=== PATIENT | female | born 1960 | race Caucasian/White ===

== ENCOUNTER 2019-05-08 01:47 | Emergency (ER) | payer OTHER ==
[~2019-05-08] VITALS: Ht 175.3 cm; Wt 92.8 kg
[2019-05-08] MEDS ORDERED: ONDANSETRON 2MG/ML, 2ML ONE (02:20)
[2019-05-08] MEDS ORDERED: KETOROLAC 30 MG/1 ML ONE (02:20)
[2019-05-08 02:24] LABS: MEAN CORPUSCULAR HEMOGLOBIN 30.9 pg (27.0-34.8); MEAN CORPUSCULAR HGB CONC 32.5 g/dL (32.4-35.8); MEAN CORPUSCULAR VOLUME 94.9 fL (80-100); MEAN PLATELET VOLUME 8.3 fL (7.4-10.4); PLATELET COUNT 418 x10^3/uL (130-400); RED BLOOD COUNT 5.13 x10^6/uL (3.82-5.3); RED CELL DISTRIBUTION WIDTH 14.1 % (9.6-15.2)
[2019-05-08] MEDS ORDERED: KETOROLAC 30 MG/1 ML IVPush ONE (02:30)
[2019-05-08] MEDS ORDERED: ONDANSETRON 2MG/ML, 2ML IVPush ONE (02:30)
[2019-05-08] MEDS ORDERED: SODIUM CHLORIDE 0.9% 1,000ML IVBOLUS ONE ×2 (02:30→06:00)
[2019-05-08 02:35] LABS: RAPID INFLUENZA A Negative (Negative); RAPID INFLUENZA B Negative (Negative)
[2019-05-08 02:37] LABS: ALANINE AMINOTRANSFERASE 22 U/L (12-78); ALBUMIN 3.9 g/dL (3.4-5.0); ANION GAP 7 mmol/L (5-15); CHLORIDE 105 mmol/L (98-107)
[2019-05-08 02:41] LABS: ALKALINE PHOSPHATASE 72 U/L (45-117); BILIRUBIN,TOTAL 0.4 mg/dL (0.2-1.0); TOTAL PROTEIN 8.1 g/dL (6.4-8.2); TROPONIN I < 0.015 ng/mL (0.000-0.045)
[2019-05-08 02:47] LABS: BASOPHILS # (AUTO) 0.02 x10^3/uL (0-0.1); BASOPHILS % (AUTO) 0 % (0-1); EOSINOPHILS # (AUTO) 0.12 x10^3/uL (0-0.4); EOSINOPHILS % (AUTO) 1 % (1-7); LYMPHOCYTES # (AUTO) 0.37 x10^3/uL (1-3.4); LYMPHOCYTES % (AUTO) 3 % (22-44); MD SCAN; MONOCYTES # (AUTO) 0.23 x10^3/uL (0.2-0.8); MONOCYTES % (AUTO) 2 % (2-9); NEUTROPHILS # (AUTO) 13.92 x10^3/uL (1.8-6.8); NEUTROPHILS % (AUTO) 95 % (42-75)
[2019-05-08 03:03] LABS: MICROSCOPIC NOT IND
[2019-05-08 03:06] LABS: CULTURE INDICATED? NO
--- NOTE | 2019-05-08 03:11 | NUR ---
PT RESTING IN BED WITH AT PT SIDE, PT A/O X4 WITH NO CURENT NEEDS AT THIS TIME
[2019-05-08] MEDS ORDERED: METOCLOPRAMIDE 5 MG/ML, 2ML ONE (05:50)
[2019-05-08] MEDS ORDERED: PLEASE ENTER ALLERGIES MC SCH (06:00)
[2019-05-08] MEDS ORDERED: METOCLOPRAMIDE 5 MG/ML, 2ML IVPush ONE (06:00)
[2019-05-08 06:14] VITALS: BP 120/71
--- NOTE | 2019-05-08 07:06 | NUR ---
Received report from WIL Osborne. All questions answered. Assuming care of pt at this time. Pt resting on gurney connected to NIBP cuff and continous pulse ox with bedrails up x 2 and call light within reach.
--- NOTE | 2019-05-08 07:29 | NUR ---
Patient given discharge instructions and they have confirmed that they understand the instructions. Patient ambulatory with steady gait. Pt left with d/c paperwork, Rx, and all personal belongigns. NADN. No other needs expressed.
== END 2019-05-08 07:32 | disposition home or self-care (01) ==
LOC: ED 02:44
DX: A09 Infectious gastroenteritis and colitis, unspecified (principal); K21.9 Gastro-esophageal reflux disease without esophagitis; M19.90 Unspecified osteoarthritis, unspecified site; J98.11 Atelectasis; Z90.49 Acquired absence of other specified parts of digestive tract; Z87.19 Personal history of other diseases of the digestive system
CPT/HCPCS: 36415; 71045; 74176; 80053; 81003; 83605; 83690; 84145; 84484; 85025; 87040; 87400; 93005; 96361; 96374; 96375; 99284; J1885; J2405; J2765; J7030

== ENCOUNTER → 2020-05-16 | Outpatient (CLI) | payer OTHER ==
[~2020-05-16] MED LIST: BUPR300T94 PO; LEVO50TA5 PO; METF-754 PO; OMEP40CA42 PO
[2020-05-16 16:00] LABS: ALANINE AMINOTRANSFERASE 21 U/L (12-78); ANION GAP 6 mmol/L (5-15); CALCIUM 9.2 mg/dL (8.5-10.1); CHLORIDE 107 mmol/L (98-107); CREATININE 1.04 mg/dL (0.55-1.02)
[2020-05-16 16:01] LABS: ALKALINE PHOSPHATASE 73 U/L (45-117); BILIRUBIN,TOTAL 0.5 mg/dL (0.2-1.0)
== END | disposition home or self-care (01) ==
LOC: STAR 14:25
PROVIDERS: ATTEND Orthopaedic Surgery
DX: Z01.812 Encounter for preprocedural laboratory examination (principal); Z20.828 Contact with and (suspected) exposure to other viral communicable diseases; I21.09 ST elevation (STEMI) myocardial infarction involving other coronary artery of anterior wall
CPT/HCPCS: 80053; 87635; 93005

== ENCOUNTER 2020-05-22 05:34 | Day surgery (SDC) | payer OTHER ==
[~2020-05-22] VITALS: Ht 175.3 cm; Wt 92.8 kg
[2020-05-22] MEDS ORDERED: BUPIVACAINE/PF 0.5% ONE (06:10)
[2020-05-22] MEDS ORDERED: ROPIvacaine/PF 0.5%, 30 ML ONE (06:10)
[2020-05-22] MEDS ORDERED: LIDOCAINE/PF 1%, 30ML ONE (06:10)
[2020-05-22] MEDS ORDERED: EPINEPHRINE 1 MG/ML, 1ML ONE (06:11)
[2020-05-22 06:24] VITALS: BP 131/91
[2020-05-22] MEDS ORDERED: LACTATED RINGERS 1,000 ML IV SCH (06:30)
[2020-05-22] MEDS ORDERED: CHLORHEXIDINE 15 ML UDC MM ONE (06:30)
[2020-05-22] MEDS ORDERED: FENTANYL PF 100 MCG/2ML ONE ×3 (06:45→07:51)
[2020-05-22] MEDS ORDERED: PROPOFOL 50 ML ONE (06:47)
[2020-05-22] MEDS ORDERED: ONDANSETRON 2MG/ML, 2ML ONE (06:54)
[2020-05-22] MEDS ORDERED: PROPOFOL 10 MG/ML, 20ML ONE (06:54)
[2020-05-22] MEDS ORDERED: DEXAMETHASONE 4 MG/ML, 1ML ONE (06:54)
[2020-05-22] MEDS ORDERED: CEFAZOLIN 1,000 MG ONE (06:54)
[2020-05-22] MEDS ORDERED: MIDAZOLAM 1 MG/ML, 2ML ONE (07:29)
[2020-05-22] MEDS ORDERED: OXYcodone 5 MG/5 ML ORAL.SOL UDC PO PRN (07:30)
[2020-05-22] MEDS ORDERED: EPHEDRINE 50 MG/ML, 1ML IVPush PRN (07:30)
[2020-05-22] MEDS ORDERED: LORazepam 2 MG/ML, 1ML IVPush PRN (07:30)
[2020-05-22] MEDS ORDERED: PROMETHAZINE 25 MG/ML, 1ML IVPush PRN (07:30)
[2020-05-22] MEDS ORDERED: hydrALAzine 20 MG/ML, 1ML IV PRN (07:30)
[2020-05-22] MEDS ORDERED: ONDANSETRON 2MG/ML, 2ML IVPush PRN (07:30)
[2020-05-22] MEDS ORDERED: HYDROmorphone 1 MG/ML, 1ML INJ IVPush PRN (07:30)
[2020-05-22] MEDS ORDERED: ACETAMINOPHEN 325 MG TABLET PO PRN (07:30)
[2020-05-22] MEDS ORDERED: METHOCARBAMOL 1,000 MG in DEXTROSE 5% 100 ML IV PRN (07:30)
[2020-05-22] MEDS ORDERED: OXYcodone 5 MG/5 ML ORAL.SOL UDC ONE (07:51)
[2020-05-22] MEDS ORDERED: ACETAMINOPHEN 650 MG/20.3 ML UDC ONE (07:51)
[2020-05-22] MEDS: FENTANYL PF 100 MCG/2ML IV PRN ×2 (07:53→08:19)
[2020-05-22] MEDS ORDERED: LABETALOL 5MG/ML, 20ML ONE (07:55)
[2020-05-22] MEDS ORDERED: KETOROLAC 30 MG/1 ML ONE (07:57)
[2020-05-22] MEDS ORDERED: KETOROLAC 30 MG/1 ML IVPush SCH (08:00)
[2020-05-22] MEDS: LABETALOL 5MG/ML, 20ML IV PRN ×2 (08:01→08:22)
== END 2020-05-22 09:20 | disposition home or self-care (01) ==
LOC: OUT 05:34
PROVIDERS: ATTEND Orthopaedic Surgery
DX: S83.242A Other tear of medial meniscus, current injury, left knee, initial encounter (principal); S83.282A Other tear of lateral meniscus, current injury, left knee, initial encounter; M65.341 Trigger finger, right ring finger; M17.12 Unilateral primary osteoarthritis, left knee; M65.862 Other synovitis and tenosynovitis, left lower leg; K21.9 Gastro-esophageal reflux disease without esophagitis; E11.9 Type 2 diabetes mellitus without complications; I10 Essential (primary) hypertension; J45.909 Unspecified asthma, uncomplicated; G47.30 Sleep apnea, unspecified; Z79.1 Long term (current) use of non-steroidal anti-inflammatories (NSAID); Z79.82 Long term (current) use of aspirin; Z79.84 Long term (current) use of oral hypoglycemic drugs; Z79.899 Other long term (current) drug therapy; Z82.49 Family history of ischemic heart disease and other diseases of the circulatory system; X58.XXXA Exposure to other specified factors, initial encounter; Y93.89 Activity, other specified; Y92.89 Other specified places as the place of occurrence of the external cause; Y99.8 Other external cause status; Z88.2 Allergy status to sulfonamides
CPT/HCPCS: 26055; 29880; 82962; J0171; J0690; J1100; J1885; J2250; J2405; J2704; J2795; J3010; J7120

== ENCOUNTER → 2020-12-17 | Outpatient (CLI) | payer OTHER ==
[~2020-12-17] MED LIST changes: -OMEP40CA42 PO; +OMEP40CA8 PO
== END | disposition home or self-care (01) ==
LOC: RAD 15:54
PROVIDERS: ATTEND Nurse Practitioner Family
DX: R10.11 Right upper quadrant pain (principal)
CPT/HCPCS: 76700